=== PATIENT | male | born 1955 | race African-American/Black ===

== ENCOUNTER 2017-12-11 18:38 | Emergency (ER) | payer SELFPAY ==
[~2017-12-11] VITALS: Ht 188 cm; Wt 98.0 kg
[~2017-12-11 18:38] MED LIST: ALBU8I INH; BENZ100 PO; MMW SWISH-SPIT; VITA100020 IJ
[2017-12-11 18:39] VITALS: BP 136/74; PULSE 105; RESP 20; TEMP 99; O2SAT 98
[2017-12-11] MEDS ORDERED: DOXYCYCLINE HYCLATE 100 MG CAP PO ONE (23:00)
[2017-12-11] MEDS ORDERED: OSELTAMIVIR PHOSPHATE 75 MG CAP PO ONE (23:00)
[2017-12-11] MEDS ORDERED: IBUPROFEN 600 MG TAB PO ONE (23:00)
[2017-12-11] MEDS ORDERED: ACETAMINOPHEN 500 MG CPLT PO ONE (23:00)
[2017-12-11] MEDS ORDERED: DOXY100C PO (23:02)
[2017-12-11] MEDS ORDERED: OSEL75 PO (23:02)
--- NOTE | 2017-12-11 23:10 | PD ---
HPI Chief Complaint: Cold / Flu Symptoms Time Seen by Provider: 22:22 Travel History International Travel<30 days: No Contact w/Intl Traveler<30days: No Traveled to known affect area: No History of Present Illness HPI 62-year-old black male presents emergency department with a 3 day history of cold symptoms. He admits to subjective fever and chills, headache, sore throat , cough, congestion, myalgias, arthralgias, diarrhea and general malaise. He denies any nausea vomiting. No abdominal pain. No dysuria or frequency. Symptoms are moderate. No exacerbating activity. No alleviating activity. He denies any pulmonary disease. Patient also reports a episode of brief syncope while shopping this week. He states that he was feeling very poorly when he was at the register and leaned forward and then had a brief episode of syncope. He denied any urinary stool incontinence. He has been normal since then. This had occurred 2 days ago with his onset of illness. Patient denied any chest pain, shortness of breath or palpitations. PFSH Past Medical History Anemia: Yes (PERNICOUS ANEMIA) Diminished Hearing: No Past Surgical History Abdominal Surgery: Yes (COLON RESECTION WITH ABD TUMOR REMOVAL) Social History Alcohol Use: Yes (X3 PER YEAR/2 GLASSES/LAST INTAKE 06/24) Tobacco Use: No Substance Use: No Allergies-Medications (Allergen,Severity, Reaction): Coded Allergies: grass pollen (Verified Allergy, Unknown, 12/11/17) Reported Meds & Prescriptions Reported Meds & Active Scripts Active Tamiflu (Oseltamivir Phosphate) 75 Mg Cap 75 Mg PO BID Doxycycline Hyclate 100 Mg Cap 100 Mg PO BID Ventolin Hfa (Albuterol Sulfate) 8 Gm Aero 2 Puff INH Q6 PRN * SHAKE WELL BEFORE USE * Magic Mouthwash-Diphenhy Formula (Lidocaine/Diphenhydr/Alum/Mg/Simeth) Ml 15 Ml SWISH-SPIT Q3H PRN MAGIC MOUTHWASH=MIX 1/3 VISCOUS LIDOCAINE(60 ML),1/3 MAALOX(60 ML),AND 1/3BENADRYL(60 ML) TO EQUAL 180 ML TOTAL. Tessalon Perles (Benzonatate) 100 Mg Cap 100 Mg PO TID PRN Reported Vitamin B-12 Extended Rel (Miscellaneous Medication) 1,000 Mcg Inj 1,000 Mcg IJ MONTHLY Review of Systems Except as stated in HPI: all other systems reviewed are Neg Physical Exam Narrative GENERAL: Well-developed, well-nourished in no acute distress. Nontoxic appearing. HEAD: Normocephalic, atraumatic. EYES: Pupils equal round and reactive. Extraocular motions intact. No scleral icterus. No injection or drainage. ENT: TMs clear without erythema. The external auditory canals clear. Nose: clear . Posterior pharynx is pink and moist. No tonsillar edema or exudate. Uvula midline. Airway patent. NECK: Trachea midline.Supple, nontender, moves head freely. No central bony tenderness or spasm. CARDIOVASCULAR: Regular tachycardic rate and rhythm without murmurs, gallops, or rubs. RESPIRATORY: Clear to auscultation. Breath sounds equal bilaterally. No wheezes , rales, or rhonchi. GASTROINTESTINAL: Abdomen soft, non-tender, nondistended. No hepato-splenomegaly , or palpable masses. No guarding. EXTREMITIES: No clubbing, cyanosis, or edema. No joint tenderness, effusion, or edema noted. BACK: Nontender without deformity or crepitance. No flank tenderness. Data Data Last Documented VS Vital Signs Date Time Temp Pulse Resp B/P (MAP) Pulse Ox O2 Delivery O2 Flow Rate FiO2 12/11/17 23:56 99.6 95 20 111/67 (82) 99 Room Air Orders Orders Ibuprofen (Motrin) (12/11/17 23:00) Acetaminophen (Tylenol) (12/11/17 23:00) Oseltamivir (Tamiflu) (12/11/17 23:00) Doxycycline (Vibramycin) (12/11/17 23:00) [facility] Medical Decision Making Medical Screen Exam Complete: Yes Emergency Medical Condition: Yes Medical Record Reviewed: Yes Differential Diagnosis MDM: High Differential diagnoses: Pneumonia, bronchitis, URI, asthma, RAD, influenza Narrative Course Patient does not appear to be toxic. He does have a low-grade temperature is mildly tachycardic. I suspect his tachycardia is from his fever. He will be given 600 mg of ibuprofen and 1 g of Tylenol p.o. P.o. fluid challenge. With the patient's age as well as his underlying medical conditions will be treated for both flu and bronchitis is given Tamiflu 75 mg p.o. and doxycycline 100 mg p.o. The patient is feeling better. His vital signs are stable. He is medically stable for discharge. Diagnosis Primary Impression: Bronchitis Patient Instructions: General Instructions Additional Instructions: Rest. Increase fluids. Tylenol and Advil. Robitussin-DM. Doxycycline, and Tamiflu. Followup with your Dr. in 3-5 days. Return to the ER for any problems. Med/Other Pt SpecificInfo: Prescription(s) given Scripts Oseltamivir (Tamiflu) 75 Mg Cap 75 MG PO BID for Mgmt Viral Infection, #9 CAP 0 Refills Prov: Brenden Lr MD 12/11/17 Doxycycline Hyclate (Doxycycline Hyclate) 100 Mg Cap 100 MG PO BID for Infection, #20 CAP 0 Refills Prov: Brenden Lr MD 12/11/17 Disposition: 01 DISCHARGE HOME Condition: Stable Sanjiv Baltazar Dec 11, 2017 23:10
[2017-12-11 23:56] VITALS: BP 111/67; PULSE 95; RESP 20; TEMP 99.6; O2SAT 99
== END 2017-12-12 00:14 | disposition home or self-care (01) ==
LOC: NEPD 18:38
DX: J40 Bronchitis, not specified as acute or chronic (principal); R00.0 Tachycardia, unspecified; R19.7 Diarrhea, unspecified; R51 Headache; R55 Syncope and collapse; D51.0 Vitamin B12 deficiency anemia due to intrinsic factor deficiency
CPT/HCPCS: 99283